=== PATIENT | female | born 1985 | race American Indian/Alaskan Native ===

== ENCOUNTER 2020-10-14 21:06 | Emergency (ER) | payer MEDICAID ==
[2020-10-14 22:16] VITALS: BP 127/80
[2020-10-14 23:46] LABS: Blood Urea Nitrogen 8 mg/dL (7-17); Calcium 9.1 mg/dL (8.4-10.2); Hemolysis Index 3
[2020-10-14 23:47] LABS: BUN/Creatinine Ratio 11
[2020-10-14 23:50] LABS: Basophils % (Auto) 0.6 % (0.0-1.8); Eosinophils # (Auto) 0.1 K/mm3 (0.0-0.4); Eosinophils % (Auto) 0.9 % (0.0-4.3); Hematocrit 35.9 % (30.3-42.9); Hemoglobin 11.8 gm/dl (10.1-14.3); Lymphocytes # (Auto) 2.9 K/mm3 (1.2-5.4); Lymphocytes % (Auto) 39.6 % (13.4-35.0); Mean Corpuscular HGB Conc 33 % (30-34); Mean Corpuscular Volume 74 fl (79-97); Monocytes # (Auto) 0.7 K/mm3 (0.0-0.8); Monocytes % (Auto) 9.2 % (0.0-7.3); Platelet Count 310 K/mm3 (140-440); Red Blood Count 4.87 M/mm3 (3.65-5.03)
[2020-10-14 23:55] LABS: Red Cell Distribution Width 21.2 % (13.2-15.2)
--- NOTE | 2020-10-15 02:14 | Emergency Department Report ---
ED Abdominal Pain HPI - General Chief Complaint: Abdominal Pain Stated Complaint: CRAMPS, FEVER, POSITIVE PREG TEST Time Seen by Provider: 10/15/20 01:51 Source: patient Mode of arrival: Ambulatory Limitations: No Limitations - History of Present Illness Initial Comments: 35-year-old female presents to the ER today with complaints of low abdominal cramping and positive home test. Patient states that she has been having intermittent low abdominal cramping for couple days. She states that she took a home test yesterday and today and both were positive. Her last menstrual cycle was September 17, 2020. She denies any associated nausea, vomiting, diarrhea or constipation. She denies any UTI symptoms. She denies any abnormal vaginal discharge. She states that that she felt hot earlier today as she when she was having a fever. She denies any chills or any other symptoms at this time. She denies any past history of abdominal surgeries. She is Ab0. MD Complaint: abdominal pain Severity scale (0 -10): 0 - Related Data Allergies Allergy/AdvReac Type Severity Reaction Status Date / Time No Known Allergies Allergy Unverified 11/09/13 09:09 ED Review of Systems ROS: Stated complaint: CRAMPS, FEVER, POSITIVE PREG TEST Other details as noted in HPI Comment: All other systems reviewed and negative Constitutional: denies: chills, fever Eyes: denies: eye pain, eye discharge, vision change ENT: denies: ear pain, throat pain Respiratory: denies: cough, shortness of breath, SOB with exertion, SOB at rest, wheezing Cardiovascular: denies: chest pain, palpitations Endocrine: no symptoms reported Gastrointestinal: abdominal pain. denies: nausea, vomiting, diarrhea, constipation, hematemesis, hematochezia Genitourinary: denies: urgency, dysuria, frequency, hematuria, discharge, abnormal menses, dyspareunia Musculoskeletal: denies: back pain, joint swelling, arthralgia Skin: denies: rash, lesions, change in color, change in hair/nails, pruritus Neurological: denies: headache, weakness, numbness, paresthesias, confusion, abnormal gait, vertigo Psychiatric: denies: anxiety, depression, auditory hallucinations, visual hallucinations, homicidal thoughts, suicidal thoughts Hematological/Lymphatic: denies: easy bleeding, easy bruising ED Past Medical Hx - Past Medical History Previous Medical History?: No - Surgical History Past Surgical History?: No - Social History Smoking Status: Unknown if ever smoked ED Physical Exam - General Limitations: No Limitations General appearance: alert, in no apparent distress - Head Head exam: Present: atraumatic, normocephalic, normal inspection - Eye Eye exam: Present: normal appearance, PERRL, EOMI Pupils: Present: normal accommodation - ENT ENT exam: Present: normal exam, mucous membranes moist, TM's normal bilaterally - Neck Neck exam: Present: normal inspection, full ROM - Respiratory Respiratory exam: Present: normal lung sounds bilaterally. Absent: respiratory distress, wheezes, rales, rhonchi - Cardiovascular Cardiovascular Exam: Present: regular rate, normal rhythm, normal heart sounds - GI/Abdominal GI/Abdominal exam: Present: soft. Absent: distended, tenderness, guarding, rebound - Neurological Exam Neurological exam: Present: alert, oriented X3, CN II-XII intact, normal gait - Psychiatric Psychiatric exam: Present: normal affect, normal mood - Skin Skin exam: Present: intact ED Course Vital Signs 10/14/20 22:15 Temperature 98.7 F Pulse Rate 72 Respiratory 19 Rate Blood Pressure 127/80 [Left] O2 Sat by Pulse 100 Oximetry ED Medical Decision Making - Lab Data Result diagrams: 10/14/20 22:51 10/14/20 22:51 - Medical Decision Making 35-year-old female presents to the ER today with complaints of low abdominal cramping and positive home test. Patient states that she has been having intermittent low abdominal cramping for couple days. She states that she took a home test yesterday and today and both were positive. Her last menstrual cycle was September 17, 2020. She denies any associated nausea, vomiting, diarrhea or constipation. She denies any UTI symptoms. She denies any abnormal vaginal discharge. She states that that she felt hot earlier today as she when she was having a fever. She denies any chills or any other symptoms at this time. She denies any past history of abdominal surgeries. She is Ab0. DDX: Intrauterine , ectopic , miscarriage, UTI/pyelonephritis, PID, appendicitis 1420: Patient resting comfortable she is not in any acute pain distress. She is not toxic or ill-appearing. She is neurologically intact with a normal gait. She has a soft nontender abdomen. Her vital signs are stable. Reviewed labs, CBC and BMP unremarkable. Serum hCG negative. Patient states that she is unable to give a urine sample as she just went to the bathroom prior to coming into the room and she is not having any UTI symptoms nor any vaginal symptoms. Patient was mainly concerned about whether or not she is . Reviewed the results of the lab work with the patient and informed her that at this time her hCG was negative. Also she really has not missed her menstrual cycle for this month. Recommend that if she has not had a period in the next 1 to 2 weeks she can do another test to follow-up with [facility]. At this time there is no indication for any additional testing, admission or emergent specialist consult. Patient stable at time of discharge. Critical care attestation.: If time is entered above; I have spent that time in minutes in the direct care o f this critically ill patient, excluding procedure time. ED Disposition Clinical Impression: Lower abdominal pain Disposition: - TO HOME OR SELFCARE Is pt being admited?: No Does the pt Need Aspirin: No Condition: Stable Instructions: Abdominal Pain, Adult, [id number], Abdominal Pain (ED) Additional Instructions: He can take Tylenol and/or ibuprofen as needed for pain. Follow-up closely with your [facility] if your period still doesn't come on in another 1-2 weeks. Return to the ER if your symptoms changes or worsens in any way. Referrals: [facility] [Provider Group] - 3-5 Days Time of Disposition: 02:14
== END 2020-10-15 02:53 | disposition home or self-care (01) ==
LOC: ED 21:06
DX: R10.30 Lower abdominal pain, unspecified (principal); Z79.899 Other long term (current) drug therapy
CPT/HCPCS: 36415; 80048; 84703; 85025; 99283